=== PATIENT | female | born 2000 | race Two or more races ===

== ENCOUNTER 2022-10-08 10:21 | Emergency (ER) | payer OTHER ==
[~2022-10-08] VITALS: Ht 154.9 cm; Wt 97.1 kg
[2022-10-08] MEDS ORDERED: PEPCID AC20 MG PO (10:30)
[2022-10-08] MEDS ORDERED: PRENATA CHEWAB1 EACH PO (10:30)
== END 2022-10-08 16:25 | disposition home or self-care (01) ==
LOC: ER 10:21
DX: O26.892 Other specified pregnancy related conditions, second trimester (principal); Z3A.24 24 weeks gestation of pregnancy; R42 Dizziness and giddiness

== ENCOUNTER 2022-12-30 10:42 | Inpatient (IN) | payer OTHER ==
[~2022-12-30] VITALS: Ht 154.9 cm; Wt 3.2 kg
[~2022-12-30 10:42] MED LIST: PEPCID AC20 MG PO; PRENATA CHEWAB1 EACH PO
== END 2023-01-25 14:19 | disposition home or self-care (01) | DRG 788 ==
LOC: O/R 01-23 04:27 → OB/GYN 01-23 09:42
PROVIDERS: ADMIT Specialist; ATTEND Specialist
PROC: 4A1HXCZ Monitoring of Products of Conception, Cardiac Rate, External Approach (ICD-10-PCS; 2023-01-23)
PROC: 10D00Z1 Extraction of Products of Conception, Low, Open Approach (ICD-10-PCS; principal; 2023-01-23 07:00)
DX: O33.8 Maternal care for disproportion of other origin (principal); Z3A.38 38 weeks gestation of pregnancy; Z37.0 Single live birth; Z20.822 Contact with and (suspected) exposure to COVID-19